=== PATIENT | female | born 1985 | race Caucasian/White ===

== ENCOUNTER → 2018-12-15 16:35 | Outpatient (CLI) | payer BC, SELFPAY ==
[2018-12-15 17:56] LABS: Thyroid Stimulating Hormone 1.09 uIU/ml (0.358-3.740)
[2018-12-17 19:02] LABS: Progesterone 8.5 ng/mL (.)
== END ==
PROVIDERS: Visit Provider Obstetrics & Gynecology
DX: N97.9 Female infertility, unspecified (principal)
CPT/HCPCS: 36415; 84144; 84443

== ENCOUNTER → 2019-03-20 15:48 | Outpatient (CLI) | payer BC, SELFPAY | PROVIDERS: PCP Emergency Medicine; Visit Provider Emergency Medicine | DX: R00.2 Palpitations (principal) | CPT/HCPCS: 93225; 93226 ==

== ENCOUNTER → 2019-08-28 13:48 | Outpatient (CLI) | payer BC, SELFPAY ==
[2019-08-28 15:14] LABS: HCG,Quantitative 2378 mIU/mL
== END ==
PROVIDERS: Visit Provider Obstetrics & Gynecology
DX: Z32.01 Encounter for pregnancy test, result positive (principal)
CPT/HCPCS: 36415; 84702

== ENCOUNTER → 2019-09-14 10:34 | Outpatient (CLI) | payer BC, SELFPAY ==
--- NOTE | 2019-09-14 10:36 | US_ITS ---
PROCEDURE: US OB TRANSVAGINAL CLINICAL INDICATION: US OB Dates COMPARISON: No exams were available for comparison FINDINGS: There is an intrauterine gestational sac noted with a yolk sac present. There is question of a tiny pole of 2 mm. Heart tones are not demonstrated on today's exam but may be too early. The 2 mm pole would correspond to a gestational age of 5 weeks and 6 days. There is a septated right ovarian cyst at 4 x 3.2 cm. IMPRESSION: There is an intrauterine gestational sac with a suspected pole with an average ultrasound age of 5 weeks and 6 days. However, heart tones are not demonstrated. Recommend follow-up ultrasound for confirmation of viability. Estimated due date by Ultrasound is 05/10/2020 Dictated by: Nigel Carrasquillo MD 09/14/2019 16:17 Electronically signed by Nigel Carrasquillo MD in [facility] 09/14/2019 16:17
== END ==
PROVIDERS: PCP Emergency Medicine; Visit Provider Obstetrics & Gynecology
DX: O02.1 Missed abortion (principal); O26.841 Uterine size-date discrepancy, first trimester; Z32.00 Encounter for pregnancy test, result unknown
CPT/HCPCS: 76817

== ENCOUNTER → 2019-09-14 11:36 | Outpatient (CLI) | payer BC, SELFPAY ==
[2019-09-14 11:58] LABS: Basophils % 0.3 % (0.1-2.0); Eosinophils # 0.2 K/mm3 (0.0-0.4); Eosinophils % 1.6 % (0.1-12.0); Hematocrit 41.7 % (37.0-47.0); Hemoglobin 13.8 g/dL (12.2-16.2); Lymphocytes # 1.4 K/mm3 (0.7-4.5); Lymphocytes % 12.9 % (10-50); Mean Corpuscular Hemoglobin 30.8 pg (27.0-31.2); Mean Corpuscular Volume 93.2 fl (81-99); Mean Platelet Volume 7.9 fl (7.4-10.4); Monocytes # 0.6 K/mm3 (0.1-1.0); Monocytes % 5.3 % (1.7-9.3); Neutrophils # 8.9 K/mm3 (1.8-7.8); Neutrophils % 79.9 % (37.0-80.0); Platelet Count 309 K/mm3 (142-424); Red Blood Count 4.47 M/mm3 (4.20-5.40); Red Cell Distribution Width 12.4 % (11.5-17.5); White Blood Count 11.1 K/mm3 (4.8-10.8)
[2019-09-14 13:43] LABS: HCG,Quantitative 8213 mIU/mL
[2019-09-15 20:04] LABS: HIV Screen 4th Generation wRfx Non Reactive (Non Reactive); Hepatitis B Surface Antigen Negative (Negative); Hepatitis C Antibody 0.1 s/co ratio (0.0-0.9); Rapid Plasma Reagin Ab Titer Non Reactive (NonRea<1:1); Rubella Antibodies, IgG 1.47 index (Immune >0.99)
== END ==
PROVIDERS: Visit Provider Obstetrics & Gynecology
DX: Z34.90 Encounter for supervision of normal pregnancy, unspecified, unspecified trimester (principal); N92.6 Irregular menstruation, unspecified
CPT/HCPCS: 36415; 84702; 85025; 86592; 86703; 86762; 86850; 87340; 87380; G0432

== ENCOUNTER → 2019-09-18 12:59 | Outpatient (CLI) | payer BC, SELFPAY ==
[2019-09-18 15:08] LABS: HCG,Quantitative 7345 mIU/mL
== END ==
PROVIDERS: Visit Provider Obstetrics & Gynecology
DX: O20.0 Threatened abortion (principal)
CPT/HCPCS: 36415; 84702

== ENCOUNTER → 2020-03-31 14:18 | Outpatient (CLI) | payer BC, SELFPAY ==
[2020-03-31 15:33] LABS: HCG,Quantitative 168 mIU/ml (0-5.42)
== END ==
PROVIDERS: Visit Provider Obstetrics & Gynecology
DX: Z32.00 Encounter for pregnancy test, result unknown (principal)
CPT/HCPCS: 36415; 84702

== ENCOUNTER 2020-04-01 20:15 | Emergency (ER) | payer BC, SELFPAY ==
[2020-04-01 20:16] VITALS: BMI 37.0
[2020-04-01 20:38] VITALS: BP 169/102; PULSE 116; RESP 18; TEMP 37.2; O2SAT 97; BMI 37.0
[2020-04-01 20:40] LABS: Microscopic, Urine URINE MICROSCOPIC (MICROSCOPIC)
[2020-04-01 20:44] LABS: Appearance,Urine CLEAR (Clear); Bilirubin,Urine Negative (Negative); Blood, Urine 3+ (Negative); Color,Urine YELLOW (Yellow); Glucose,Urine (UA) Negative (Negative); Ketones,Urine Negative (Negative); Leukocyte Esterase,Urine Negative (Negative); Nitrate,Urine Negative (Negative); Protein,Urine TRACE (Negative); Specific Gravity, Urine >= 1.030 (1.005-1.030); Urobilinogen,Urine 0.2 EU/dl (0.2)
[2020-04-01 20:48] LABS: Urine Pregnancy, HCG Qual. Positive (Negative)
[2020-04-01 20:56] LABS: Bacteria,Urine 2+ /lpf; Mucus,Urine 1+ /lpf
[2020-04-01 20:57] LABS: Calcium Oxalate Crystals,Urine 1+ /lpf
[2020-04-01 21:00] LABS: Basophils # 0.1 K/mm3 (0-0.2); Basophils % 0.4 % (0.1-2.0); Eosinophils # 0.4 K/mm3 (0.0-0.4); Eosinophils % 2.6 % (0.1-12.0); Hematocrit 40.5 % (37.0-47.0); Hemoglobin 13.4 g/dL (12.2-16.2); Lymphocytes # 3.5 K/mm3 (0.7-4.5); Lymphocytes % 23.8 % (10-50); Mean Corpuscular Hemoglobin 30.6 pg (27.0-31.2); Mean Corpuscular Volume 92.8 fl (81-99); Mean Platelet Volume 7.7 fl (7.4-10.4); Monocytes # 0.8 K/mm3 (0.1-1.0); Monocytes % 5.4 % (1.7-9.3); Neutrophils # 9.8 K/mm3 (1.8-7.8); Neutrophils % 67.7 % (37.0-80.0); Platelet Count 303 K/mm3 (142-424); Red Blood Count 4.37 M/mm3 (4.20-5.40); Red Cell Distribution Width 12.8 % (11.5-17.5); White Blood Count 14.5 K/mm3 (4.8-10.8)
[2020-04-01 21:16] LABS: Chloride 105 mmol/L (98-107); Sodium 139 mmol/L (136-145)
[2020-04-01 21:17] LABS: Potassium 3.7 mmoL/L (3.5-5.1)
[2020-04-01 21:19] LABS: Alanine Aminotransferase 30 U/L (12-78); Albumin Level 4.1 g/dl (3.5-5.0); Albumin/Globulin Ratio 1.4 (1.1-1.8); Alkaline Phosphatase 60 U/L (38-126); Aspartate Amino Transferase 26 U/L (14-36); Blood Urea Nitrogen 11 mg/dl (7-17); Creatinine Clearance Estimated 248 mL/min (50-200); Estimated Glomerular Filt Rate 142 ml/min (>60); GFR (African American) 172 ML/MIN (>60); Total Protein,Serum 7.1 g/dl (6.3-8.2)
[2020-04-01 21:20] LABS: Glucose 107 mg/dl (74-100)
[2020-04-01 21:25] LABS: Bilirubin,Total 0.1 mg/dl (0.2-1.3)
[2020-04-01 21:36] LABS: HCG,Quantitative 127 mIU/ml (0-5.42)
--- NOTE | 2020-04-01 21:58 | US_ITS ---
PROCEDURE: US OB TRANSVAGINAL CLINICAL INDICATION: Bleeding with lower abd pain COMPARISON: US OB TRANSVAGINAL from 09/14/2019 FINDINGS: A definite intrauterine gestational sac is not identified. There is a small cystic area along the peripheral aspect of the endometrium near the cervix and may represent a small nabothian cyst. The endometrium measures 8 mm. The right ovary is 4 x 3 cm and contains a 1 cm cyst. The left ovary is 3 x 2 cm containing small follicles. There is bilateral ovarian blood flow. There is an additional 1.5 cm right ovarian cyst noted. No cul-de-sac fluid apparent. There is a small amount of fluid in the cervix. There are some echodense areas within the endometrium possibly due to blood. IMPRESSION: A normal gestational sac is not apparent. Please correlate with beta HCG levels and follow-up ultrasound. Cannot confirm viability at this time. Small cystic areas present in the lower aspect of the uterus peripherally and could be due to a nabothian cyst. There are some echodense areas of the endometrium and may be due to blood. Dictated by: Nigel Carrasquillo MD 04/02/2020 10:49 Electronically signed by Nigel Carrasquillo MD in [facility] 04/02/2020 10:49
[2020-04-01 21:59] VITALS: BP 123/76; PULSE 77; RESP 16; O2SAT 99
--- NOTE | 2020-04-01 22:50 | [facility].EDPREG ---
ED Disposition Clinical Impression: Rh negative status during in first trimester Qualifiers: Weeks of gestation: less than 8 weeks Qualified Code(s): Z3A.01 - Less than 8 weeks gestation of Disposition: Home, Self-Care Condition on Discharge: Good Instructions: DI for Vaginal Bleeding During Additional Instructions: call dr cavanaugh office in am Referrals: Provider,MD Francesco [Primary Care Provider] - Maria Del Carmen Cavanaugh MD [Staff Physician] - - Critical Care Critical Care Time: No Attestation: On 04/01/20, the high probability of a clinically significant, sudden or life threatening deterioration of the following system(s) required my full and direct attention, intervention and personal management. The time I documented below is in addition to time spent performing reported procedures but includes the following listed in this critical care notation. Medical Decision Making - Medical Records Medical records reviewed: Yes: I reviewed the patient's medical records. - Anival Inquiry Pt receiving controlled substance: No Vital Signs: 04/01/20 20:38 04/01/20 21:59 04/01/20 23:33 Temperature 99.0 F Temperature Source Oral Pulse Rate [Right] 116 H 77 68 Respiratory Rate 18 16 16 Blood Pressure [Right Arm] 169/102 H 123/76 136/79 Blood Pressure Mean [Right Arm] 124 91 98 Blood Pressure Source [Right Arm] Automatic Cuff Blood Pressure Position [Right Arm] Supine 02 Sat by Pulse Oximetry 97 99 100 Oxygen Delivery Method Room Air Room Air Room Air - Lab Data Lab results reviewed: Yes: I reviewed the patient's lab results. Lab Results 04/01/20 20:28: Urine Color Yellow, Urine Appearance Clear, Urine pH 6.0, Ur Specific Hope >= 1.030, Urine Protein Trace, Urine Glucose (UA) Negative, Urine Ketones Negative, Urine Blood 3+, Urine Nitrate Negative, Urine Bilirubin Negative, Urine Urobilinogen 0.2, Ur Leukocyte Esterase Negative, Urine RBC 10-20, Urine WBC 5-10, Ur Squamous Epith Cells 10-20, Calcium Oxalate Crystal 1+, Urine Bacteria 2+, Urine Mucus 1+ 04/01/20 20:28: Urine HCG, Qual Positive 04/01/20 20:52: WBC 14.5 H, RBC 4.37, Hgb 13.4, Hct 40.5, MCV 92.8, MCH 30.6, MCHC 33.0, RDW 12.8, Plt Count 303, MPV 7.7, Neut % (Auto) 67.7, Lymph % (Auto) 23.8, [place] % (Auto) 5.4, Eos % (Auto) 2.6, Baso % (Auto) 0.4, Neut # (Auto) 9.8 H, Lymph # (Auto) 3.5, [place] # (Auto) 0.8, Eos # (Auto) 0.4, Baso # (Auto) 0.1 04/01/20 20:52: Sodium 139, Potassium 3.7, Chloride 105, Carbon Dioxide 24, Anion Gap 13.7, BUN 11, Creatinine 0.50 L, Estimated Creat Clear 248, Estimated GFR 142, Est GFR ( Amer) 172, Glucose 107 H, Calcium 9.0, Total Bilirubin 0.1 L, AST 26, ALT 30, Alkaline Phosphatase 60, Total Protein 7.1, Albumin 4.1, Globulin 3.0, Albumin/Globulin Ratio 1.4, HCG, Quant 127 H 04/01/20 22:42: Blood Type A Negative Result diagrams: 04/01/20 20:52 04/01/20 20:52 Orders (Tests/Meds): ORDERS Category Date Time Status Urine Culture Stat Micro 04/01/20 20:28 Received US OB transvaginal Stat Ultrasound 04/01/20 21:58 Taken - US Data US Images: Pelvis ED US Reviewed: Yes: I have viewed radiologist's interpretation Findings Narrative: no preg seen HPI - General Chief complaint: Abdominal Pain Stated complaint: Preg, bleeding,Abd Pain Time Seen by Provider: 04/01/20 21:00 Mode of Arrival: Ambulatory Source of Information: Patient, Medical Record Limitations: No Limitations Description of Symptoms (Recalled from ER Triage Doc. by RN): Pt states she did a home pregnency test and it was positive, has appointment with Dr Cavanaugh, but her pain and bleeding is worse. C/O of lower abd pain with vag bleeding - History of Present Illness HPI Narrative: last menses in january and missed period in february and over the last weeks spotting but mod menses bleeding with crampy changes over the last 2 days - has pending ob consult - MD Complaint: vaginal bleeding Onset
[2020-04-01 23:04] LABS: Anion Gap 13.7 mEq/L (5-15); Carbon Dioxide 24 mmol/L (22.0-30.0)
[2020-04-01 23:33] VITALS: BP 136/79; PULSE 68; RESP 16; O2SAT 100
[2020-04-02 00:24] VITALS: BP 156/87; PULSE 94; RESP 16; O2SAT 98
[2020-04-02 00:55] VITALS: BP 151/78; PULSE 96; RESP 18; TEMP 37.2; O2SAT 97
--- NOTE | 2020-04-02 01:10 | PC.NURSE ---
I observed pt for 20 minutes post IM injection, pt showed no s/s of reaction.
== END 2020-04-02 01:11 | disposition home or self-care (01) ==
PROVIDERS: Emergency Provider Emergency Medicine
DX: O26.891 Other specified pregnancy related conditions, first trimester (principal); K21.9 Gastro-esophageal reflux disease without esophagitis; F33.1 Major depressive disorder, recurrent, moderate; F17.210 Nicotine dependence, cigarettes, uncomplicated
CPT/HCPCS: 36415; 76817; 80053; 81001; 81025; 84702; 85025; 86900; 86901; 87086; 96372; 99283; J2790

== ENCOUNTER → 2020-04-03 12:56 | Outpatient (CLI) | payer BC, SELFPAY ==
[2020-04-03 13:49] LABS: HCG,Quantitative 64 mIU/ml (0-5.42)
== END ==
PROVIDERS: Visit Provider Obstetrics & Gynecology
DX: Z34.90 Encounter for supervision of normal pregnancy, unspecified, unspecified trimester (principal)
CPT/HCPCS: 36415; 81241; 84702

== ENCOUNTER → 2021-08-18 14:08 | Outpatient (CLI) | payer BC, SELFPAY ==
[2021-08-18 18:16] LABS: HCG,Quantitative < 2 mIU/ml (0-5.42)
[2021-08-20 08:15] LABS: FSH 3.3 mIU/mL (.); Progesterone 0.1 ng/mL (.)
== END ==
PROVIDERS: Visit Provider Obstetrics & Gynecology
DX: N92.6 Irregular menstruation, unspecified (principal)
CPT/HCPCS: 36415; 83001; 84144; 84702

== ENCOUNTER 2024-01-23 08:14 | Outpatient (CLI) | payer BC, SELFPAY ==
--- NOTE | 2024-01-23 08:24 | US_ITS ---
FINAL REPORT TECHNIQUE: Sonographic images of the right upper quadrant were obtained. CLINICAL HISTORY: ELEVATED LFT COMPARISON: None FINDINGS: PANCREAS: Somewhat obscured by overlying bowel gas.. LIVER: There is fatty infiltration of the liver.. No focal hepatic lesion. No intrahepatic biliary ductal dilatation. GALLBLADDER: No gallstones. No gallbladder wall thickening or pericholecystic fluid. COMMON DUCT: 3 mm. Normal for age. RIGHT KIDNEY: The right kidney measures 12.9 cm. There is no hydronephrosis, mass, or stone. FREE FLUID: None. IMPRESSION: Fatty infiltration of the liver. Reviewed, Interpreted and Dictated by Nuzhat Silva MD Transcribed by Diandra Chappell Authenticated and [facility]
== END 2024-01-23 23:59 ==
LOC: RAD 08:14
PROVIDERS: PCP Nurse Practitioner Family; Visit Provider Nurse Practitioner Family
DX: R79.89 Other specified abnormal findings of blood chemistry (principal)
CPT/HCPCS: 76705